=== PATIENT | female | born 1985 | race Hispanic/Latino ===

== ENCOUNTER 2016-07-13 23:05 | Inpatient (IN) | payer MEDICAID ==
[~2016-07-13] VITALS: Ht 144.8 cm; Wt 62.1 kg
[2016-07-13] MEDS ORDERED: Lactated Ringer's 1,000 ML IV PRN (23:33)
[2016-07-13] MEDS ORDERED: Ondansetron 2 mg/mL 2 mL Inj IVPUSH PRN (23:35)
[2016-07-13] MEDS ORDERED: Sodium Chloride LOK Flush 10 mL Syringe IVFLUSH PRN (23:35)
[2016-07-13] MEDS ORDERED: Methylergonovine 0.2 mg/mL Inj IM PRN (23:35)
[2016-07-13] MEDS ORDERED: Oxytocin 10 Unit/mL Inj IM PRN (23:35)
[2016-07-13] MEDS ORDERED: Oxytocin 30 Units/500 mL LR 30 UNITS in IV Premix 1 EACH IV PRN (23:35)
[2016-07-13] MEDS ORDERED: Carboprost 250 mCg/mL Inj IM PRN (23:35)
[2016-07-13] MEDS ORDERED: Hemorrhage Kit, Post Partum XX ONE (23:35)
[2016-07-13] MEDS ORDERED: fentaNYL-PF 50 mCg/mL 2 mL Inj IVPUSH PRN (23:35)
[2016-07-13 23:53] LABS: Mean Corpuscular Hemoglobin 29.9 pg (27.0-35.0); Mean Corpuscular Volume 87.1 fL (81-100)
[2016-07-14] MEDS ORDERED: fentaNYL 2 mCg/mL-Bupivicaine 0.125% 100 mL Premix EPIDURAL ONE (03:11)
[2016-07-14] MEDS: Lactated Ringer's 1,000 ML IV SCH ×5 (03:26→20:43)
[2016-07-14] MEDS ORDERED: Lactated Ringer's 500 ML IV ONE (03:26)
--- NOTE | 2016-07-14 03:26 | PCM.HPANE ---
Patient Data Surgeon Admitting Provider:Elliot Erwin MD Attending Provider:Elliot Erwin MD Primary Care Physician:Jesus Gonzalez MD Other Provider:Nehal Marin Anesthesia Reason for Visit Term Labor TERM LABOR Ht/WT & BMI Body Mass Index Allergies Coded Allergies: No Known Allergies (Unverified Allergy, Unknown, 07/13/16) Uncoded Allergies: NKA (Allergy, Unknown, 01/28/04) NKDA (Allergy, Unknown, 01/28/04) No Known Allergies (Allergy, Unknown, 01/28/04) Past Anesthesia History Anesthesia History: Denies:: Abnormal Airway Additional Information: LEP in past no anesthesia problems Diabetes History Hx Diabetes?: No History History of ENT Problems?: No HEENT History: Denies:: Abnormal Airway Denture Type: None Teeth Condition: Within Normal Limits Hx of Heart Problems?: No Cardiovascular History: Denies:: Congestive Heart Failure Hypertension Hx of Respiratory Problem?: No Respiratory History: Denies:: Tuberculosis Hx Neurologic Problems?: No Hx of GI Problems?: No Hx of Problems?: No Female Hx: Positive for:: Currently Hx Musculoskeletal Problems?: No Hx Surgeries?: No Hx Diabetes: No Hx Alcohol Use: NoHx Substance Use: No Smoking Status: Never Smoker Have You Smoked inLast 12 mo: No Stop/Bang P-Blood Pressure: treated: No B- Body Mass Index > 35 kg/m2: No A- Age over 50: No N- Neck Large Circumference: No G- Gender Male: No CORNELIUS Risk Assessment: Low Risk, <3 Yes Risk Assessment Category Category 1A: Patient has history of documented sleep apnea, and HAS NOT received any narcotic, sedative or anesthesia administration during this stay. Category 1B: Patient has history of documented sleep apnea, and HAS received any narcotic , sedative or anesthesia administration during this stay Category 2: Patient has SUSPECTED Obstructive Sleep Apnea, and HAS received any narcotic , sedative or anesthesia administration during this stay. Category 3: Patient has SUSPECTED Obstructive Sleep Apnea and HAS NOT received narcotic, sedative or anesthesia administration during this stay. Category 4: Outpatient in Procedural Areas with known sleep apnea or who screen positive for High Risk via the STOP/BANG questionnaire. Exam Exam General Appearance: Alert, Oriented X3, Cooperative, No Acute Distress HEENT/AIRWAY: MP 1 Lungs: Clear to Auscultation, Normal Air Movement Heart: Exam Unremarkable, Regular Rate/Rhythm, No Murmurs/Rubs/Gallops Meds/Labs/Diagnostics Labs Test 07/13/16 23:40 White Blood Count 10.1th/mm3 (3.8-10.1) Red Blood Count 4.81mil/mm3 (3.90-5.20) Hemoglobin 14.4g/dL (12.0-15.6) Hematocrit 41.9% (35.0-46.0) Mean Corpuscular Volume 87.1fL (81-100) Mean Corpuscular Hemoglobin 29.9pg (27.0-35.0) Mean Corpuscular Hemoglobin Concent 34.4% (32.0-37.0) Red Cell Distribution Width 14.0% (12.3-15.4) Platelet Count 177bil/L (150-400) Plan Impression Patient chart reviewed, patient interviewed and anesthestic plan with risks, benefits, and alternatives discussed, and informed consent obtained. NPO per Anesth. Guidelines: Yes ASA Physical Status: ASA1 Normal Healthy Anesthetic Plan: Epidural Bene/Risks/Altern/Consents: Yes HP Complete Prior to Induction: Yes Raad No MD Jul 14, 2016 03:26
[2016-07-14] MEDS ORDERED: Atropine 1 mg/10 mL (Code) Syringe IVPUSH PRN (03:30)
[2016-07-14] MEDS ORDERED: EPHEDrine Sulfate 50 mg/mL Inj IVPUSH PRN (03:30)
[2016-07-14] MEDS ORDERED: Ondansetron 2 mg/mL 2 mL Inj IVPUSH PRN (03:30)
[2016-07-14] MEDS ORDERED: fentaNYL 2 mCg/mL-Bupiv 0.125% 100 ML EPIDURAL SCH (03:30)
[2016-07-14] MEDS ORDERED: Oxytocin 30 Units/500 mL LR 30 UNITS in IV Premix 1 EACH IV PRN ×2 (07:10→12:45)
[2016-07-14] MEDS: Sodium Chloride LOK Flush 10 mL Syringe IVFLUSH SCH ×2 (08:30→16:30)
[2016-07-14] MEDS ORDERED: Ampicillin 2,000 mg Inj ONE (12:09)
[2016-07-14] MEDS ORDERED: 0.9% Sodium Chloride 100 ML ONE (12:11)
[2016-07-14] MEDS ORDERED: GENTAMICIN IV ONE (12:20)
[2016-07-14] MEDS ORDERED: DEXTROSE 5% IV ONE (12:20)
[2016-07-14] MEDS ORDERED: Ampicillin 2,000 mg/50 mL NS Minibag Plus IV ONE ×2 (12:20)
[2016-07-14] MEDS ORDERED: Methylergonovine 0.2 mg/mL Inj IM PRN (12:45)
[2016-07-14] MEDS ORDERED: LANOlin HPA 7 Gm Ointment TOPICAL PRN (12:45)
[2016-07-14] MEDS ORDERED: Witch Hazel-Glycerin Pads TOPICAL PRN (12:45)
[2016-07-14] MEDS ORDERED: Benzocaine (Dermoplast) 20% 60 Gm Spray TOPICAL PRN (12:45)
[2016-07-14] MEDS ORDERED: Carboprost 250 mCg/mL Inj IM PRN (12:45)
[2016-07-14] MEDS ORDERED: Hemorrhage Kit, Post Partum XX ONE (12:45)
[2016-07-14] MEDS ORDERED: Oxytocin 10 Unit/mL Inj IM PRN (12:45)
[2016-07-14] MEDS: Ascorbic Acid 500 mg Tablet PO SCH (17:56)
[2016-07-14] MEDS: oxyCODONE-Acetamin 5-325 mg Tablet PO PRN (19:43)
--- NOTE | 2016-07-14 20:32 | PCM.ANEP1 ---
Post Anesthesia PACU Phase 1 Assessment Date of Service: Jul 14, 2016 Anesthetic Administered: Epidural Level of Alertness: Awake, talking Pain: Yes Pain Scale Score: 4 Nausea or Vomiting: No CV Function & Hydration Stable: Yes Airway Device: Oxygen Delivery: Room Air Lungs: Normal Air Movement PACU Phase 2 Assessment Complications: No Follow up Care: No Patient Instructions Provided: N/A Didier Hernandez MD Jul 14, 2016 20:31
[2016-07-15] MEDS: Sodium Chloride LOK Flush 10 mL Syringe IVFLUSH SCH (00:30)
[2016-07-15] MEDS: oxyCODONE-Acetamin 5-325 mg Tablet PO PRN (04:17)
[2016-07-15 07:04] LABS: Mean Corpuscular Hemoglobin 29.7 pg (27.0-35.0)
[2016-07-15] MEDS: Ascorbic Acid 500 mg Tablet PO SCH ×2 (08:36→17:08)
--- NOTE | 2016-07-15 12:48 | HP ---
[address] [address] HISTORY AND PHYSICAL PATIENT: VIVIAN KHANNA : 1985 MR#: [id number] ADMIT: 07/13/2016 JOB ID: [id number] DATE: 07/13/2016 HISTORY OF PRESENT ILLNESS: The patient is a 30-year-old 4, para 3, at 40 weeks and 6 days, who comes to Labor and Delivery with complaint of contractions in the evening of July 13, 2016. The patient had been seen in the office the day before, on July 12, 2016, where she was examined and found to be 4 cm dilated, 50% effaced, station -3. The membranes were stripped. The induction of labor was initially scheduled for Monday, July 18, 2016, for post dates. The patient presents complaining of contractions. heart rate tracing is reactive, category 1. Baseline 140 beats per minute. The patient's care was relatively uncomplicated. She has a history of three spontaneous vaginal deliveries. All labor lasted for about 24 hours. One baby was 8 pounds 11 ounces. The patient desires sterilization, and sterilization consent was obtained during her care. PAST MEDICAL HISTORY: Noncontributory. SOCIAL HISTORY: Patient denies smoking, alcohol, illicit recreational drug use. FAMILY HISTORY: Noncontributory. ALLERGIES: NKDA. LABORATORY DATA: labs were reviewed. She is group B strep negative, rubella immune, varicella immune. Blood group and type O positive. The last hemoglobin in third trimester was 13.4. PHYSICAL EXAMINATION: Vital signs: Blood pressure 111/78, respiratory rate 18, pulse 80, temperature 36.7. HEENT: PERRLA. Chest: Lungs clear bilaterally. No adventitious sounds. Cardiovascular: Regular rate and rhythm. Abdomen is gravid. Fundal height measuring 41 cm. Moderately tender with contractions. Corporate Physical Security Supervisor exam: The membranes are intact. There is no vaginal discharge. The cervix is 5 cm dilated, 50% effaced, station -2. The patient has contractions every 3-5 minutes. ASSESSMENT AND PLAN: The patient is a 30-year-old, 4 para 3, at 40 weeks and 6 days, estimated due date July 09, 2016, being admitted to Labor and Delivery in active labor. The patient desires sterilization. Sterilization consent was signed on May 25, 2016. Epidural will be given as per patient's request. labs were sent. IV hydration started with lactated Ringer's at 125 mL/hour. We will anticipate spontaneous vaginal delivery.
--- NOTE | 2016-07-15 14:19 | OP ---
[address] [address] OPERATIVE REPORT PATIENT: VIVIAN KHANNA : 1985 MR#: [id number] ADMIT: 07/13/2016 JOB ID: [id number] DATE OF SURGERY: 07/14/2016 SURGEON: Elliot Erwin M.D. PREOPERATIVE DIAGNOSIS(ES): Intrauterine at 41 weeks in active labor in 4, para 3. POSTOPERATIVE DIAGNOSIS(ES): Intrauterine at 41 weeks in active labor in 4, para 3 with spontaneous vaginal delivery at 41 weeks. The patient is a 30-year-old 4, para 4 now who came to Labor and Delivery in the evening of July 13, 2016 complaining of contractions. The patient was examined day before, was found to be 4 cm dilated, 50% effaced, -3 station. On the follow up examination at Labor and Delivery, there is a cervical change to 5 cm change of this patient from -3 to -2. The patient was admitted for delivery. She spontaneously progressed to 6 cm when she was re-examined in the morning on July 15, 2016. Augmentation with Pitocin was provided. Epidural was received as per patient's request. The patient is group B strep negative. heart rate tracing was reactive, category one. No decels. The patient progressed to full dilation at 11 a.m. July 15, 2016, started pushing at around the same time. She developed a fever of 38, and heart rate tracing was in 180s around 12 o'clock p.m., the patient received one dose of ampicillin 2 g. Gentamicin was underway for chorioamnionitis. The presentation of the was right occiput anterior. The patient underwent spontaneous vaginal delivery at 12:33 p.m., delivered a female with Apgars 8 at one minute and 9 at five minutes. Weight 4008 g or 8 pounds and 13 ounces. The patient has not had any lacerations. Amniotic fluid was clear. Qc Analyst was present at delivery. The placenta was examined and was found to be intact with three-vessel cord. It was delivered at 12:39 p.m. Estimated blood loss was 300 mL. All instruments and sponge counts was correct times x2 at the end of delivery.
[2016-07-16] MEDS ORDERED: Ondansetron 2 mg/mL 2 mL Inj ONE (06:50)
[2016-07-16] MEDS ORDERED: Propofol 10,000 mCg/mL 20 mL Inj ONE (06:50)
[2016-07-16] MEDS ORDERED: fentaNYL-PF 50 mCg/mL 2 mL Inj ONE (06:50)
[2016-07-16] MEDS ORDERED: CeFAZolin Inj 2 GM in IV Premix 1 EACH IV ONE (07:55)
[2016-07-16] MEDS: Ascorbic Acid 500 mg Tablet PO SCH ×2 (08:00→18:06)
--- NOTE | 2016-07-16 08:02 | PCM.HPANE ---
Patient Data Date of Service: Jul 16, 2016 Surgeon Admitting Provider:Elliot Erwin MD Attending Provider:Elliot Erwin MD Primary Care Physician:Jesus Gonzalez MD Other Provider:Nehal Marin Anesthesia Reason for Visit Term Labor TERM LABOR Ht/WT & BMI Height (Centimeters): 145 Weight (Kilograms): 62 Body Mass Index 29.6 Allergies Coded Allergies: No Known Allergies (Unverified Allergy, Unknown, 07/13/16) Uncoded Allergies: NKA (Allergy, Unknown, 01/28/04) NKDA (Allergy, Unknown, 01/28/04) No Known Allergies (Allergy, Unknown, 01/28/04) Past Anesthesia History Anesthesia History: Denies:: Abnormal Airway Diabetes History Hx Diabetes?: No MRSA MRSA: No Medications Hypertension Medication: No Home Meds Incl Beta Ирина: No History History of ENT Problems?: No HEENT History: Denies:: Abnormal Airway Denture Type: None Teeth Condition: Within Normal Limits Hx of Heart Problems?: No Cardiovascular History: Denies:: Congestive Heart Failure Hypertension Hx of Respiratory Problem?: No Respiratory History: Denies:: Tuberculosis Hx Neurologic Problems?: No Hx of GI Problems?: No Hx of Problems?: No HX of Peritoneal Dialysis: No Hx Musculoskeletal Problems?: No Hx Surgeries?: No Hx Diabetes: No Hx Alcohol Use: NoHx Substance Use: No Smoking Status: Never Smoker Have You Smoked inLast 12 mo: No Stop/Bang P-Blood Pressure: treated: No B- Body Mass Index > 35 kg/m2: No A- Age over 50: No N- Neck Large Circumference: No G- Gender Male: No CORNELIUS Risk Assessment: Low Risk, <3 Yes Risk Assessment Category Category 1A: Patient has history of documented sleep apnea, and HAS NOT received any narcotic, sedative or anesthesia administration during this stay. Category 1B: Patient has history of documented sleep apnea, and HAS received any narcotic , sedative or anesthesia administration during this stay Category 2: Patient has SUSPECTED Obstructive Sleep Apnea, and HAS received any narcotic , sedative or anesthesia administration during this stay. Category 3: Patient has SUSPECTED Obstructive Sleep Apnea and HAS NOT received narcotic, sedative or anesthesia administration during this stay. Category 4: Outpatient in Procedural Areas with known sleep apnea or who screen positive for High Risk via the STOP/BANG questionnaire. Low Risk, <3 Yes Exam Exam General Appearance: Alert, Oriented X3, Cooperative, No Acute Distress HEENT/AIRWAY: MP 2 Lungs: Normal Air Movement Heart: Exam Unremarkable, Regular Rate/Rhythm, No Murmurs/Rubs/Gallops Meds/Labs/Diagnostics Labs Test 07/15/16 06:42 White Blood Count 11.0th/mm3 (3.8-10.1) Red Blood Count 3.91mil/mm3 (3.90-5.20) Hemoglobin 11.6g/dL (12.0-15.6) Hematocrit 34.8% (35.0-46.0) Mean Corpuscular Volume 89.0fL (81-100) Mean Corpuscular Hemoglobin 29.7pg (27.0-35.0) Mean Corpuscular Hemoglobin Concent 33.3% (32.0-37.0) Red Cell Distribution Width 14.2% (12.3-15.4) Platelet Count 131bil/L (150-400) Plan Impression Patient chart reviewed, patient interviewed and anesthestic plan with risks, benefits, and alternatives discussed, and informed consent obtained. NPO per Anesth. Guidelines: Yes ASA Physical Status: ASA1 Normal Healthy Anesthetic Plan: SAB Bene/Risks/Altern/Consents: Yes HP Complete Prior to Induction: Yes Other Fire Extinguisher Technician services used for PARQ & History Didier Hernandez MD Jul 16, 2016 07:46
[2016-07-16] MEDS: Lactated Ringer's 1,000 ML IV SCH (08:03)
[2016-07-16] MEDS ORDERED: Atropine 0.4 mg/mL Inj IV PRN (08:05)
[2016-07-16] MEDS ORDERED: fentaNYL-PF 50 mCg/mL 2 mL Inj IVPUSH PRN (08:05)
[2016-07-16] MEDS ORDERED: MetoCLOpramide 5 mg/mL 2 mL Inj IVPUSH PRN (08:05)
[2016-07-16] MEDS ORDERED: Ondansetron 2 mg/mL 2 mL Inj IVPUSH PRN (08:05)
[2016-07-16] MEDS ORDERED: Dexamethasone 4 mg/mL Inj IVPUSH PRN (08:05)
[2016-07-16] MEDS ORDERED: EPHEDrine Sulfate 50 mg/mL Inj IVPUSH PRN (08:05)
[2016-07-16] MEDS: oxyCODONE-Acetamin 5-325 mg Tablet PO PRN ×3 (10:36→20:45)
--- NOTE | 2016-07-16 12:12 | PCM.ANEP1 ---
Post Anesthesia PACU Phase 1 Assessment Date of Service: Jul 16, 2016 Vital Signs See anesthetic PACU vitals or OB documentation Anesthetic Administered: Epidural Level of Alertness: Awake, talking Pain: Yes Pain Scale Score: 5 Nausea or Vomiting: No CV Function & Hydration Stable: Yes Airway Device: Oxygen Delivery: Room Air Lungs: Normal Air Movement Dermatome Level: L3,4 (Thigh) PACU Phase 2 Assessment Complications: No Follow up Care: No Patient Instructions Provided: N/A Didier Hernandez MD Jul 16, 2016 12:12
--- NOTE | 2016-07-16 13:14 | HP PRE OP ---
[address] [address] PREOPERATIVE HISTORY AND PHYSICAL PATIENT: VIVIAN KHANNA : 1985 MR#: [id number] ADMIT: 07/13/2016 JOB ID: [id number] HISTORY: The patient is a 30-year-old, 4, para 4, who underwent spontaneous vaginal delivery on July 14, 2016, delivered female with weight 4008 g, Apgars 9 at one minute and 9 at five minutes. Delivery was uncomplicated. The patient desires bilateral tubal ligation, she considers her childbearing complete. She has signed the sterilization consent more than a month ago. The patient has moderate post delivery pain, 4/10 intensity, well-controlled with nonsteroidal anti-inflammatory medications. PAST MEDICAL HISTORY: Noncontributory. SOCIAL HISTORY: Patient denies smoking, alcohol, illicit recreational drug use. ALLERGIES: NKDA. LABS: WBC count 11.0, hemoglobin 11.6, hematocrit 34.8, platelet count 131. Blood group and type is O-positive. PHYSICAL EXAMINATION: Vital signs: Blood pressure 100/62, respiratory rate 19, pulse 90, temperature 36.6. HEENT: PERRLA. Chest: Clear bilaterally. No adventitious sounds. Cardiovascular system: Regular rate and rhythm. Abdomen is nontender, nondistended. The fundus is firm and measuring about 20 weeks, located at the level of the umbilicus. Extremities: No pitting edema. Pelvic exam: Patient deferred. ASSESSMENT AND PLAN: A 30-year-old, 4, para 4, status post spontaneous vaginal delivery, day two. Is going for a tubal ligation. The sterilization consent was obtained back on May 25, 2016. The risks and benefits of the procedure were explained, the risks including but not limited to bleeding, wound infection, damage to adjacent organ and structures, possible spontaneous renal stenosis following tubal ligation in rare circumstances, less then 0.5%. The patient verbalized understanding of all the risks involved and informed consent was obtained. IV hydration started with lactated Ringer at 125 mL/h. The patient received preoperative antibiotics. She is going to the operating room.
--- NOTE | 2016-07-16 14:54 | OP ---
[address] [address] OPERATIVE REPORT PATIENT: VIVIAN KHANNA : 1985 MR#: [id number] ADMIT: 07/13/2016 JOB ID: [id number] DATE OF SURGERY: 07/16/2016 PROCEDURE: bilateral tubal ligation. PREOPERATIVE DIAGNOSIS(ES): Sterilization. POSTOPERATIVE DIAGNOSIS(ES): Sterilization. SURGEON: Elliot Erwin MD. ANESTHESIA: Oanh Finnegan MD, general. ESTIMATED BLOOD LOSS: 2 mL ESTIMATED FLUIDS: 500 mL of lactated Ringer. COMPLICATIONS: None. FINDINGS: Normal appearance of the ovaries and fallopian tubes. INDICATION FOR THE PROCEDURE: The patient is a 30-year-old, 4, para 4 now, who underwent spontaneous vaginal delivery on July 14, 2016. She considers her childbearing complete and signed the sterilization consent in May 2016. The risks and benefits of a tubal ligation were discussed with the patient and operative consent was obtained. PROCEDURE: The patient was brought to the operating room, where she underwent general anesthesia without difficulties. The patient was placed in a dorsal lithotomy position. She was prepped and draped in the usual surgical fashion. She received preoperative antibiotics. Time-out was performed verifying correct patient, correct procedure. Subumbilical skin incision was made measuring 1.5 cm and carried down to the underlying layer of rectus muscle fascia with the scalpel. The rectus muscle fascia was identified, tented up with two Kian clamps, and incised with a scalpel. The peritoneum was identified, tented up, and incised with Metzenbaum scissors. The uterus was found to be at the level of the umbilicus. Using right-angle retractor, the patient's left fallopian tube was identified, tilted up, and brought into the operative field. It was held up using two [place] clamps. The window was created in the mesosalpinx using Bovie. Two 0 plain gut ties were brought through the window in mesosalpinx and the left fallopian tube was ligated proximally and distally about 3 cm from each tie to another. The segment of the tube was excised with Metzenbaum scissors and sent to Pathology. Good hemostasis was achieved. The tube was repositioned back into the abdomen. The same was done on the patient's contralateral side, the right tube was identified, brought into the operative field using [place] clamps. The segment measuring 4 cm including the fimbria was removed after double suturing was applied on the proximal and distal parts of the excision. The specimen was sent to Pathology in a separate container. Good hemostasis was reassured. The rectus muscle fascia was reapproximated using 0-Vicryl. 3-0 Vicryl was used for subcuticular tissue to reapproximate it. The skin was closed with 4-0 Monocryl. Dermabond glue was applied. Band-Aid was applied. The patient tolerated the procedure well and was transferred to the recovery room in stable condition.
[2016-07-17] MEDS: oxyCODONE-Acetamin 5-325 mg Tablet PO PRN ×3 (00:15→08:48)
[2016-07-17] MEDS ORDERED: Sodium Citrate-Citric Acid 15 mL Solution PO SCH (06:00)
--- NOTE | 2016-07-17 07:27 | PCM.PNOBPP ---
Subjective Date of Service Jul 17, 2016 Post : Spontaneous Vaginal Delivery Visit History The patient is a 30-year-old, 4, para 4 now, who underwent spontaneous vaginal delivery on July 14, 2016 and a BTL on 07/15/2016 who is now day #3 doing well. Lochia: Normal Pain Management: PO pain meds Gastrointestinal: Good Appetite, No N/V Postop Activity: Ambulating Independently Labs Laboratory Tests 07/15/16 06:42: White Blood Count 11.0, Red Blood Count 3.91, Hemoglobin 11.6, Hematocrit 34.8, Mean Corpuscular Volume 89.0, Mean Corpuscular Hemoglobin 29.7, Mean Corpuscular Hemoglobin Concent 33.3, Red Cell Distribution Width 14.2, Platelet Count 131 Exam Vital Signs Vital Signs: VS reviewed, stable Exam Abdomen: Fundus firm Extremities: No cords General: Alert, Oriented X3 Surgical Wound : Incision General Appearence: Intact OB Post Assessment/Plan Assessment PPD #3 doing well. POD#2 Problems: (1) care and examination immediately after delivery Plan: Discharge home today. Status: Acute ICD Code: Z39.0 Pain Evaluation: Adequate Pain Control Post plan: Anticipate discharge home today Katlyn Geller MD Jul 17, 2016 07:27
[2016-07-17] MEDS: Ascorbic Acid 500 mg Tablet PO SCH (07:38)
--- NOTE | 2016-07-17 07:41 | PCM.DC.OB ---
Obstetrical Discharge Summary Date of Service Jul 17, 2016 Date of hospital admission Jul 13, 2016 at 23:31 Date of Discharge: Jul 17, 2016 Providers Admitting Physician: Elliot Ewrin MD Primary Care Physician: Jesus Gonzalez MD Attending Physician: Elliot Erwin MD Problems: (1) care and examination immediately after delivery Plan: PPD #3 doing well. Discharge home today. Status: Acute ICD Code: Z39.0 Invasive procedures Tubal Ligation Date of Procedure: Jul 16, 2016 Brief History and Physical: The patient is a 30-year-old, 4, para 4 now, who underwent spontaneous vaginal delivery on July 14, 2016 and a BTL on 07/15/2016 who is now day #3 doing well. Hospital Course: Her hospital course was uneventful. She was admitted in active labor and progressed through labor without complication and had a normal vaginal delivery followed by a BTL. Follow-up plan Follow up with Dr. Erwin in 6 weeks for a routine visit. Discharge Diet: No restrictions Discharge Activity-General: Pelvic Rest for 6 weeks, Try not to overdue, Be up and about, No lifting >15 pounds for 2 weeks Katlyn Geller MD Jul 17, 2016 07:41
[2016-07-17] MEDS ORDERED: Ascorbic Acid PO (07:45)
[2016-07-17] MEDS ORDERED: DOCU-41 PO (07:45)
[2016-07-17] MEDS ORDERED: FERR-74 PO (07:45)
[2016-07-17] MEDS ORDERED: OXYC1TAB24 PO (07:45)
[2016-07-17] MEDS ORDERED: IBUP800T28 PO (07:45)
--- NOTE | 2016-07-17 07:47 | PCM.DIOB ---
Obstetrical Disch Instruction Date of Service: Jul 17, 2016 Dates of Hospitalization Date of Hospital Admission Jul 13, 2016 at 23:31 Providers Admitting Physician: Elliot Erwin MD Primary Care Physician: Jesus Gonzalez MD Attending Physician: Elliot Erwin MD Discharge Diagnosis Problems: (1) care and examination immediately after delivery Plan: Doing well. Discharge home today. Status: Acute ICD Code: Z39.0 Diet Discharge Diet: No restrictions Activity Discharge Activity-General: Pelvic Rest for 6 weeks, Try not to overdue, Be up and about, Balance rest and activity, No lifting >10 pounds for 4-6 weeks Dressing and Incisional Care Hygiene: May shower, Wash incision with soap & water, DO NOT soak incision under water, NO bathtub, hot tub or whirlpool (for two weeks), Perineal care, Sitz bath, Dermoplast spray, Witch Soledad pads Follow Up Plan Follow-up Provider (F9): Elliot Erwin MD Follow-up appointment: Weeks (6) Katlyn Geller MD Jul 17, 2016 07:47
[2016-07-17 08:43] VITALS: BP 110/61; PULSE 53; RESP 18
--- NOTE | 2016-07-18 15:03 | PATH ---
SURGICAL PATHOLOGY Attending Physician:Elliot Erwin MD CASE STATUS: Signed Out PATIENT NAME: VIVIAN KHANNA PID: [id number] : 1985 DATE COLLECTED:07/16/2016 00:00 SPECIMEN: 1: Fallopian Tube, Sterilization 2: Fallopian Tube, Sterilization CLINICAL HISTORY: STERILIZATION 1. R FALLOPIAN TUBE SEGMENTS 2. L FALLOPIAN TUBE SEGMENTS FINAL DIAGNOSIS: 1. 2.SEGMENTS OF RIGHT AND LEFT FALLOPIAN TUBES (STERILIZATION PROCEDURE): NO SIGNIFICANT PATHOLOGIC CHANGE. ICD10 Z30.2 GROSS DESCRIPTION: 1. Received in formalin, labeled with the patient' s name and "right fallopian tube", is one arguelles, cylindrical fragment of tissue measuring 2.0 x 1.5 x 0.8 cm. Two applications sales representative sections are submitted in cassette 1A. 2. Received in formalin, labeled with the patient' s name and "left tube", are two cylindrical, arguelles tissue fragments ranging in size from 2.0 x 0.8 x 0.8 cm to 2.7 x 1.0 x 0.8 cm. Two applications sales representative sections are submitted in cassette 2A. ([id number]) MICRO DESCRIPTION: See diagnosis. ICD-9 CODES: CPT CODES: 1: 17083 2: 53952 Electronically Signed Out Jacky Narayanan MD [facility] Pathology [facility] [address], [place] [address] Technical component performed at [facility], [facility] [address], [place], [address]
== END 2016-07-17 10:14 | disposition home or self-care (01) | DRG 767 ==
LOC: FBCO 23:05 → FBC 23:31
PROVIDERS: ADMIT Legal Medicine; ATTEND Legal Medicine
PROC: 10E0XZZ Delivery of Products of Conception, External Approach (ICD-10-PCS; principal; 2016-07-15)
PROC: 0UL77ZZ Occlusion of Bilateral Fallopian Tubes, Via Natural or Artificial Opening (ICD-10-PCS; 2016-07-16)
DX: O41.1230 Chorioamnionitis, third trimester, not applicable or unspecified (principal); O76 Abnormality in fetal heart rate and rhythm complicating labor and delivery; Z30.2 Encounter for sterilization; Z3A.40 40 weeks gestation of pregnancy; Z37.0 Single live birth